=== PATIENT | male | born 1995 | race Two or more races ===

== ENCOUNTER 2024-12-18 09:17 | Emergency (ER) | payer MEDICAID, SELFPAY ==
[2024-12-18 09:25] VITALS: BP 111/71; PULSE 88; RESP 20; TEMP 36.7; O2SAT 100; BMI 17.8
[2024-12-18 09:42] VITALS: PULSE 88; RESP 24; O2SAT 100; BMI 16.7
--- NOTE | 2024-12-18 10:16 | XR_ITS ---
Examination: CT abdomen and pelvis without contrast. Coronal 3-D reconstructions. Sagittal 2-D reconstructions. Date and time of exam:December 18, 2024 1045 hours INDICATIONS: Onset severe abdominal pain with nausea beginning this morning CTDI: vol (mGy): 5.01 DLP: (mGycm): 277 Technique: Axial images of the abdomen have been obtained, 3 mm slice thickness Intravenous contrast material has not been administered. Low dose protocols were performed. One or more of the following dose reduction techniques were used; automated exposure control, adjustment of the mA and/or KV according to patient size, use of iterative reconstruction technique. Findings: No focal liver or splenic lesions No gallstones No pancreatic or adrenal mass Mild renal parenchymal scar formation No renal or ureteral calculi, no hydronephrosis Aorta normal size Normal appendix No pericecal inflammatory change No bowel obstruction No diverticulitis Significant thickening of urinary bladder wall 11 mm No prostatomegaly IMPRESSION: Mild renal parenchymal scar formation right Findings most consistent with prominent cystitis pattern Normal appendix
[2024-12-18 10:28] VITALS: BP 108/84; PULSE 70; RESP 17; TEMP 36.6; O2SAT 97
[2024-12-18 10:39] LABS: Basophils % (Auto) 0 % (0-2.5); Eosinophils # (Auto) 0.2 Thou/mm3 (0.0-0.5); Eosinophils % (Auto) 3 % (0-10); Hemoglobin 14.4 g/dL (13.5-16.0); Immature Granulocytes % (Auto) 0 % (0-0); Immature Granulocytes Auto 0.03 Thou/mm3 (0.00-0.00); Lymphocytes # (Auto) 1.8 Thou/mm3 (1.0-4.8); Lymphocytes % (Auto) 22 % (10-50); Mean Corpuscular HGB Conc 35.1 g/dl (31.0-37.0); Mean Corpuscular Hemoglobin 28.6 pg (25.0-35.0); Mean Corpuscular Volume 81 fL (80-100); Monocytes # (Auto) 0.6 Thou/mm3 (0.0-0.8); Monocytes % (Auto) 7 % (0-12); Neutrophils # (Auto) 5.6 Thou/mm3 (1.8-7.7); Neutrophils % (Auto) 67 % (37-80); Nucleated Red Blood Cell % 0 /100 WBC (0); Platelet Count 143 Thou/mm3 (140-440); Red Blood Count 5.04 Miln/mm3 (4.50-5.90); White Blood Count 8.4 Thou/mm3 (3.8-10.6)
[2024-12-18] MEDS: FAMOTIDINE INJ 10 MG/ML VIAL 2 ML 20 MG IVP (10:39)
[2024-12-18] MEDS: ONDANSETRON INJ 2 MG/ML INJ 2 ML 4 MG IVP (10:40)
[2024-12-18] MEDS: MORPHINE SULF INJ 10 MG/ML VIAL 4 MG IVP (10:40)
[2024-12-18 10:52] LABS: Prothrombin Time 11.3 Seconds (9.0-12.2)
[2024-12-18 10:54] LABS: Collection Type, Urine Clean Catch; Squamous Epithelial Cell,Urine 0 /hpf (0-5)
[2024-12-18 10:56] LABS: Alanine Aminotransferase 17 U/L (10-49); Albumin, Serum 4.4 gm/dL (3.5-5.0); Albumin/Globulin Ratio 1.8 (1.2-2.2); Alkaline Phosphatase 77 U/L (46-116); Anion Gap 13 (7-16); BUN/Creatinine Ratio 16 Ratio (12-20); Bilirubin,Total 0.8 mg/dL (0.3-1.2); Blood Urea Nitrogen 14 mg/dL (9-23); Calcium 9.1 mg/dL (8.3-10.6); Calcium (Corrected) 9.1 mg/dL (8.5-10.1); Chloride 103 mMol/L (98-107); Creatinine (Component) 0.9 mg/dL (0.6-1.3); Estimated Creatinine Clearance 91.6 mL/min (>60); Globulin 2.4 gm/dL (2.3-3.5); Glucose 99 mg/dL (74-106); Lipase 47 U/L (12-53); Magnesium 1.6 mg/dL (1.6-2.6); Osmolality,Calculated 283 (275-295); Potassium 3.3 mMol/L (3.4-5.1); Sodium 142 mMol/L (136-145); Total Protein 6.8 gm/dL (5.7-8.2); eGFR > 60 See Note
[2024-12-18] MEDS: SODIUM CHLORIDE 0.9% 1000 ML 1,000 ML 999 ML IV (11:01)
[2024-12-18 11:14] LABS: Bilirubin,Urine Negative (Negative); Blood,Urine Negative (Negative); Clarity,Urine Clear (Clear/Hazy); Color,Urine Colorless (Lt Yel-Yel); Glucose, Urine Negative (Negative); Ketones,Urine 1+ (Negative); Leukocyte Esterase,Urine Negative (Negative); Nitrite,Urine Negative (Negative); Protein,Urine Negative (Neg - Trace); RBC,Urine 2 /hpf (0-3); Specific Gravity,Urine 1.011 (1.001-1.035); Urobilinogen,Urine Negative mg/dL (0.0-1.0); WBC,Urine < 1 /hpf (0-5)
--- NOTE | 2024-12-18 11:14 | EDNOTE_ITS ---
ED Abdominal Pain RME/HPI General Chief Complaint: Abdominal Pain Stated complaint: ABDOMINAL PAIN Time seen by provider: 12/18/24 10:06 Arrival date/time: 12/18/24 09:17 Limitations: no limitations RME / HPI RME / HPI narrative: 29 year old male with history of left pneumothorax requiring chest tube otherwise healthy presents to the ED BIBA from home for evaluation of abdominal pain that began last night and worsening this morning. Described as aching in sensation that is located most to the epigastric and periumbilical region, rating as moderate. Accompanied by nausea. Reports eating ribs for dinner last night and unsure if that is attributing to his symptoms. Patient additionally reported having a stomach ache 1 week ago that resolved on its own. Denies heart burn sensation. Denies use of alcohol or drugs. Denies fevers, chills, chest pain, cough, shortness of breath, diarrhea, constipation, or urinary symptoms. Related Data Previous Rx's ?Medication ?Instructions ?Recorded ibuprofen 600 mg tablet 600 mg PO Q6H PRN pain #30 t abs 12/01/20 Allergies Allergy/AdvReac Type Severity Reaction Status Date / Time No Known Allergies Allergy Verified 12/01/20 09:16 Review of Systems Review of Systems Systems Reviewed: All systems reviewed, normal except as documented Past Medical History Past Medical History NEUROLOGIC: Negative Neurological Disorders CARDIAC: Negative Cardiac Disorders or Congestive Heart Failure RESPIRATORY: Negative Chronic Obstructive Pulmonary Disease (COPD) GASTROINTESTINAL: Negative Gastrointestinal Disorders GENITOURINARY: Negative Genitourinary Disorders or Renal Disease MUSCULOSKELETAL: Negative Musculoskeletal Disorders ENDOCRINE: Negative Endocrine Disorders, Diabetes Mellitus Type 1 or Diabetes Mellitus Type 2 HEMATOLOGIC: Negative Blood Disorders Social History SMOKING STATUS: Never smoker ED Exam General Limitations: Present no limitations General appearance: Present alert and in no apparent distress Head Head exam: Present atraumatic, normocephalic and normal inspection Eye Eye exam: Present normal appearance, PERRL and EOMI ENT ENT exam: Present normal exam, normal oropharynx and mucous membranes moist Neck Neck exam: Present normal inspection, full ROM and trachea midline Chest Chest inspection: Present normal inspection and symmetric chest wall rise Respiratory Respiratory exam: Present normal lung sounds bilaterally Cardiovascular Cardiovascular exam: Present regular rate, normal rhythm and normal heart sounds Abdominal Exam Abdominal exam: Present soft, normal bowel sounds and other (mild epigastric tenderness to palpation) Extremities Exam Extremities exam: Present normal inspection and full ROM Back Exam Back exam: Present normal inspection and full ROM Neurological Exam Neurological exam: Present alert, oriented X3 and CN II-XII intact Psychiatric Psychiatric exam: Present normal affect and normal mood Skin Skin exam: Present warm, dry, intact and normal color Course Quality Measures none Orders Category Date Time Status Graduate Internship STAT Care 12/18/24 10:14 Completed Continuous Pulse Oximetry STAT Care 12/18/24 10:14 Completed Insert IV STAT Care 12/18/24 10:14 Completed NPO STAT Care 12/18/24 10:[address] abdomen pelvis wo con Stat Exams 12/18/24 10:16 Completed CBC Stat Lab 12/18/24 10:27 Completed Comprehensive Metabolic Panel Stat Lab 12/18/24 10:27 Completed Lipase Stat Lab 12/18/24 10:27 Completed Magnesium Stat Lab 12/18/24 10:27 Completed Prothrombin Time with INR Stat Lab 12/18/24 10:27 Completed Urinalysis Stat Lab 12/18/24 10:45 Completed Famotidine Inj [Pepcid Inj] Med 12/18/24 10:24 Discontinued 20 mg IVP X1 ONE Morphine Inj Med 12/18/24 10:15 Discontinued 4 mg IVP X1 ONE Ondansetron Inj [Zofran Inj] Med 12/18/24 10:14 Discontinued 4 mg IVP Q1H PRN Potassium Chloride [K-Dur] Med 12/18/24 12:39 Discontinued 20 meq PO X1 ONE Sodium Chloride 0.9% 1000 ml [Ns] 1,000 ml Med 12/18/24 10:14 Discontinued IV 999 mls/hr Vital Signs Vital signs: Vital Signs Temperature 98.0 F 12/18/24 09:25 Pulse Rate 88 12/18/24 09:25 Respiratory Rate 20 12/18/24 09:25 Blood Pressure 111/71 12/18/24 09:25 Pulse Oximetry (%) 100 12/18/24 09:25 Oxygen Delivery Method Room Air 12/18/24 09:25 Pulse ox is 100% on room air which is adequate. Abdominal Pain MDM MDM Narrative MDM Narrative:: IRosalina am scribing for and in the presence of Dr. Rock. Patient remains clinically stable throughout the emergency department visit. We reviewed all the results, analysis, and treatment plans. Patient is amenable to discharge. Strict return precautions were outlined. Patient was discharged in stable condition. Patient data External records reviewed:: [facility] previous records and EMS form Clinical information provided by:: patient and EMS Social determinants that could affect healthcare access:: none Patient has the following chronic illnesses:: None How is presenting disease/condition affected by chronic disease/condition?: no chronic disease Evaluation data The following diagnostics were reviewed and interpreted by me:: lab results and radiology exam(s) Lab and/or radiology exams considered but not ordered:: none Interpretation Summary: Ordering Physician: Cody Rock MD Date of Service: 12/18/24 Procedure(s): CT abdomen pelvis wo con Accession Number(s): [id number] cc: Cody Rock MD; Daniel Cline MD; Carlos Marte MD~ Examination: CT abdomen and pelvis without contrast. Coronal 3-D reconstructions. Sagittal 2-D reconstructions. Date and time of exam:December 18, 2024 1045 hours INDICATIONS: Onset severe abdominal pain with nausea beginning this morning CTDI: vol (mGy): 5.01 DLP: (mGycm): 277 Technique: Axial images of the abdomen have been obtained, 3 mm slice thickness Intravenous contrast material has not been administered. Low dose protocols were performed. One or more of the following dose reduction techniques were used; automated exposure control, adjustment of the mA and/or KV according to patient size, use of iterative reconstruction technique. Findings: No focal liver or splenic lesions No gallstones No pancreatic or adrenal mass Mild renal parenchymal scar formation No renal or ureteral calculi, no hydronephrosis Aorta normal size Normal appendix No pericecal inflammatory change No bowel obstruction No diverticulitis Significant thickening of urinary bladder wall 11 mm No prostatomegaly IMPRESSION: Mild renal parenchymal scar formation right Findings most consistent with prominent cystitis pattern Normal appendix Dictated By: Carlos Marte MD Signed By: <Electronically signed by Carlos Marte MD in OV> 12/18/24 1116 Medications / Prescriptions Medications or Prescriptions considered but not ordered:: None Medication administrations:: Medication Administration History Discontinued Medications Famotidine (Famotidine Inj 10 Mg/Ml Vial 2 Ml) 20 mg IVP X1 ONE Stop: 12/18/24 10:25 Last Admin: 12/18/24 10:39 Dose: 20 mg Documented By: CLEM Sodium Chloride (Ns) 1,000 mls @ 999 mls/hr IV .Q1H1M ONE Stop: 12/18/24 11:14 Last Infusion: 12/18/24 12:05 Dose: Infused Documented By: Admin: 12/18/24 11:01 Dose: 999 mls/hr Documented By: CLEM Morphine Sulfate (Morphine Sulf Inj 10 Mg/Ml Vial) 4 mg IVP X1 ONE Stop: 12/18/24 10:16 Last Admin: 12/18/24 10:40 Dose: 4 mg Documented By: CLEM Ondansetron HCl (Ondansetron Inj 2 Mg/Ml Inj 2 Ml) 4 mg IVP Q1H PRN PRN Reason: PERSISTENT NAUSEA OR VOMITING Stop: 12/19/24 10:13 Last Admin: 12/18/24 10:40 Dose: 4 mg Documented By: CLEM Potassium Chloride (Potassium Chloride 20 Meq Tabcr) 20 meq PO X1 ONE Stop: 12/18/24 12:40 Last Admin: 12/18/24 14:05 Dose: 20 meq Documented By: CLEM See above Consultations Consultation(s) initiated? (list below): No Diagnosis Differential diagnosis abdominal pain: abdominal pain, calculus of kidney, constipation and gastroenteritis Most likely diagnosis given after review of the tests above:: Abdominal pain Hypokalemia Admission Indicated Admission indicated?: not indicated Admission Request Was there a request for admission?: No Disposition Plan Disposition Plan: Discharge Discharge Attestation Discharge Attestation: The patient and all family members were given an opportunity to ask questions and understood the discharge instructions. Discharge instructions specifically effects, indications for sooner follow up or return to the emergency department, and the expected course of current diagnosis. Patient condition: Stable Discharge Plan Plan Patient Disposition: HOME (Self Care) Patient condition on transfer: Stable Prescriptions/Referrals Prescriptions/Med Rec: No Action ibuprofen 600 mg tablet 600 mg PO Q6H PRN (Reason: pain) Qty: 30 0RF Referrals: Daniel Cline MD [Primary Care Provider] - In 1 week Problem List Clinical Impression: Abdominal pain, Hypokalemia Patient/Caregiver Discharge Instructions Education Materials: ED Hypokalemia, ED Pain, Acute, Uncertain Cause Additional Instructions: Follow-up with your primary care doctor in 3 to 5 days for recheck. You can return to the emergency department sooner if symptoms worsen or if you notice any new, concerning issues. Print Language: Czech Stand Alone Forms: [facility] Patient Portal Info Letter
[2024-12-18 11:20] VITALS: BP 99/70; PULSE 66; RESP 17; TEMP 36.6; O2SAT 98
[2024-12-18 12:27] VITALS: BP 91/56; PULSE 74; RESP 19; TEMP 36.5; O2SAT 97
[2024-12-18 14:00] VITALS: BP 103/61; PULSE 70; RESP 16; TEMP 36.6; O2SAT 97
[2024-12-18] MEDS: POTASSIUM CHLORIDE 20 mEq TABCR PO (14:05)
== END 2024-12-18 14:10 | disposition home or self-care (01) ==
PROVIDERS: Emergency Provider Family Medicine; PCP Family Medicine
DX: E87.6 Hypokalemia (principal); N28.89 Other specified disorders of kidney and ureter; R10.9 Unspecified abdominal pain
CPT/HCPCS: 36415; 74176; 80053; 81001; 83690; 83735; 85025; 85610; 96361; 96374; 96375; 99284; J2270; J2405; J3490; J7030; A9270